=== PATIENT | male | born 1955 | race Caucasian/White ===

== ENCOUNTER 2017-07-27 16:09 | Emergency (ER) | payer OTHER ==
[2017-07-27] MEDS ORDERED: Adacel (T-DAP) 0.5 ML VIAL ONE (16:34)
[2017-07-27] MEDS ORDERED: Bacitracin Zinc 1 Packet ONE (16:47)
== END 2017-07-27 16:50 | disposition home or self-care (01) ==
LOC: BURERS 16:09
DX: S60.452A Superficial foreign body of right middle finger, initial encounter (principal); W26.8XXA Contact with other sharp object(s), not elsewhere classified, initial encounter; W45.8XXA Other foreign body or object entering through skin, initial encounter
CPT/HCPCS: 90471; 90715; J2001

== ENCOUNTER 2020-09-27 09:55 | Emergency (ER) | payer MEDICARE ==
[2020-09-27 10:39] LABS: Bilirubin Small (Negative); Blood, Urine Negative (Negative); Clarity Clear (Clear); Glucose, Urine (Dipstick) Negative (Negative); Ketone, Urine Trace mg/dL (Negative); Leukocyte Negative (Negative); Nitrite Negative (Negative); Protein, Urine (Dipstick) Negative (Neg-Trace); Specific Gravity, Urine 1.025 (1.005-1.030); Urobilinogen 0.2 mg/dL (Less than 2); pH, Urine 5.5 (5.0-9.0)
[2020-09-27] MEDS ORDERED: Lidocaine Viscous Sol 2% 15 ml UD Cup ONE (10:48)
== END 2020-09-27 11:29 | disposition home or self-care (01) ==
LOC: BURERS 09:55
DX: N40.1 Benign prostatic hyperplasia with lower urinary tract symptoms (principal); R33.8 Other retention of urine; R10.30 Lower abdominal pain, unspecified; I95.9 Hypotension, unspecified; G90.3 Multi-system degeneration of the autonomic nervous system; Z79.899 Other long term (current) drug therapy
CPT/HCPCS: 51702; 81003; 87086